=== PATIENT | male | born 1985 | race Caucasian/White ===

== ENCOUNTER → 2021-02-12 | Outpatient (CLI) | payer OTHER ==
--- NOTE | 2021-02-12 16:11 | RAD ---
EXAM: Renal sonogram. HISTORY: Proteinuria. TECHNIQUE: Sonographic imaging of the kidneys and bladder was performed. COMPARISON: None. FINDINGS: The kidneys are normal in size. No solid or cystic renal lesion is seen. There is no hydron ephrosis. The bladder is unremarkable. The prevoid bladder volume is 269 cc. The ureteral jets are alexandra th seen. There is incidental mild splenomegaly, measuring 13.5 cm. The aorta and inferior vena cava a re obscured due to bowel gas. IMPRESSION: 1. Sonographically unremarkable kidneys and bladder. 2. Mild splenomegaly. Electronically signed by: Marissa Garnett MD (02/12/2021 4:09 PM) [id number]
== END ==
LOC: US 15:46
PROVIDERS: ATTEND Nurse Practitioner Family
DX: R16.1 Splenomegaly, not elsewhere classified (principal); R89.8 Other abnormal findings in specimens from other organs, systems and tissues
CPT/HCPCS: 76770